=== PATIENT | female | born 1995 | race Caucasian/White ===

== ENCOUNTER 2017-09-09 21:55 | Emergency (ER) | payer SELFPAY ==
[~2017-09-09] VITALS: Ht 165.1 cm; Wt 90.7 kg
[2017-09-09] MEDS ORDERED: CLINDAMYCIN HC300 MG PO (22:13)
== END 2017-09-09 22:20 | disposition home or self-care (01) ==
LOC: ED 21:55
DX: K08.89 Other specified disorders of teeth and supporting structures (principal); R11.2 Nausea with vomiting, unspecified; F17.200 Nicotine dependence, unspecified, uncomplicated; Z88.1 Allergy status to other antibiotic agents; Z88.6 Allergy status to analgesic agent